=== PATIENT | male | born 1970 | race Caucasian/White ===

== ENCOUNTER 2020-04-25 13:00 | Outpatient (RCR) | payer OTHER, SELFPAY | END 2020-04-26 23:55 | disposition home or self-care (01) | LOC: HO.PAOS 13:00 | PROVIDERS: Visit Provider Psychologist | DX: F43.10 Post-traumatic stress disorder, unspecified (principal); F34.1 Dysthymic disorder; Z86.59 Personal history of other mental and behavioral disorders | CPT/HCPCS: 90834 ==